=== PATIENT | female | born 1960 | race Caucasian/White ===

== ENCOUNTER 2025-08-29 09:54 | Outpatient (CLI) | payer MEDICARE, MEDICAID ==
--- NOTE | 2025-08-29 10:41 | RADIOLOGY REPORT ---
EXAM: CT CT CHEST LOW DOSE HISTORY: PERSONAL HISTORY OF NICOTINE DEPENDENCE COMPARISON: None TECHNIQUE: Noncontrast helical CT images of the chest were performed utilizing low dose lung cancer screening protocol. Sagittal and coronal reformatted images were obtained. This CT exam was performed using one or more of the following dose reduction techniques: Automated exposure control, adjustment of the mA and/or kV according to patient size, or use of iterative reconstruction technique. Radiation Dose: CT Dose: CTDI volume is 2.8 mGy. Dose-length product is 101.08 mGy*cm FINDINGS: There is a 10.5 mm left lower lobe noncalcified pulmonary nodule with a reniform shape ( image 64, series 4). No other noncalcified pulmonary nodules are identified bilaterally. No consolidative infiltrates or pneumothorax. There is interstitial prominence in the lung bases. There are trace bilateral pleural effusions, slightly larger on the left. There are multiple calcified granulomas in both lungs. No suspicious mediastinal or axillary adenopathy. The heart is not enlarged. There are coronary artery calcifications. There is a trace pericardial effusion. There is mild prominence of the bilateral pericardial fat pads. No thoracic aortic aneurysm. There is borderline ectasia of the central pulmonary arteries. The spleen is borderline enlarged. There is a duodenal diverticulum, not fully imaged here. There is a chronic appearing superior endplate compression fracture of T11. There are 11 rib-bearing vertebral bodies. There is slight upper thoracic levoscoliosis. IMPRESSION: 1. 10.5 mm left lower lobe renal form shaped noncalcified pulmonary nodule. 2. Trace bilateral pleural effusions and mild interstitial prominence in the lung bases suggestive of mild CHF. 3. Coronary artery disease. 4. Old granulomatous disease of the chest. Lung-RADS 4A-S. Suspicious. Appropriate follow-up may include 3 month LDCT and/or PET-CT. Lung-RADS v2022.
== END 2025-08-29 23:59 | disposition home or self-care (01) ==
LOC: RAD 09:54
PROVIDERS: ATTEND Family Medicine
DX: S22.080A Wedge compression fracture of T11-T12 vertebra, initial encounter for closed fracture (principal); Z12.2 Encounter for screening for malignant neoplasm of respiratory organs; R91.1 Solitary pulmonary nodule; J84.10 Pulmonary fibrosis, unspecified; Z87.891 Personal history of nicotine dependence; I25.10 Atherosclerotic heart disease of native coronary artery without angina pectoris; M41.84 Other forms of scoliosis, thoracic region; X58.XXXA Exposure to other specified factors, initial encounter; Y93.89 Activity, other specified; Y92.89 Other specified places as the place of occurrence of the external cause; Y99.8 Other external cause status
CPT/HCPCS: 71271